=== PATIENT | female | born 1975 | race American Indian/Alaskan Native ===

== ENCOUNTER 2016-11-26 11:12 | Emergency (ER) | payer OTHER ==
[2016-11-26] MEDS ORDERED: TORADOL IM ONE (15:09)
[2016-11-26] MEDS ORDERED: CATAPRES PO ONE ×2 (15:32→17:18)
--- NOTE | 2016-11-26 16:11 | Emergency Department Report ---
HPI - General Chief Complaint: Earache Time Seen by Provider: 11/26/16 15:03 - HPI HPI: 41-year-old female presents today with pain in her right ear radiating to her right jaw. Patient states that she has a scar on her neck from her right thyroidectomy 6 years ago in the pain is causing discomfort in that scar. Patient's states that she's been symptomatic for the past 3 days. Positive for painful swallowing and runny nose. He tried Motrin and Tylenol with some initial relief but no relief at this time. Denies fever, chills, cough, nausea , vomiting, chest pain, shortness of breath, abdominal pain. Positive for history of TMJ dysfunction. Patient denies history of hypertension. Patient denies chest pain, palpitations , headache, visual changes, confusion, dizziness. ED Past Medical Hx - Medications Home Medications: Home Medications Medication Instructions Recorded Confirmed Last Taken Type Cyclobenzaprine [Flexeril] 10 mg PO TID PRN #20 tablet 11/26/16 Unknown Rx Ketorolac [Toradol] 10 mg PO Q6H PRN #20 tablet 11/26/16 Unknown Rx amLODIPine [Norvasc] 5 mg PO DAILY #30 tab 11/26/16 Unknown Rx ED Review of Systems ROS: Stated complaint: PAIN IN RIGHT EAR AND NECK Other details as noted in HPI Constitutional: denies: chills, fever, malaise Eyes: denies: eye pain ENT: ear pain, throat pain, congestion Respiratory: denies: cough, shortness of breath, wheezing Cardiovascular: denies: chest pain, palpitations Endocrine: no symptoms reported Gastrointestinal: denies: abdominal pain, nausea, vomiting Neurological: denies: headache, weakness Physical Exam - Physical Exam Vital Signs: Vital Signs 11/26/16 11/26/16 11/26/16 12:25 15:32 15:57 Temperature 98.6 F 98.1 F Pulse Rate 85 78 78 Respiratory 16 20 22 Rate Blood Pressure 184/113 214/134 Blood Pressure 214/134 [Left] O2 Sat by Pulse 100 97 Oximetry Physical Exam: GENERAL: The patient is well-developed and well-nourished. Patient is in NAD. HEAD: Normocephalic. Atraumatic. EYES: PERRL. EARS: External auditory canals and tympanic membranes clear; hearing grossly intact. No tenderness to palpation over the mastoid region. NOSE: Normal nasal mucosa with no nasal discharge. THROAT: Positive for erythema. No tonsillomegaly or tonsillar exudates noted. FACE: Tenderness to palpation over the right TM joint. NECK: Positive for right-sided anterior cervical lymphadenopathy. CHEST/LUNGS: Clear to auscultation throughout. HEART/CARDIOVASCULAR: Regular rate and rhythm. ABDOMEN: Abdomen is soft, nontender. Bowel sounds normoactive. No guarding or rebound tenderness. EXTREMITIES: Peripheral pulses intact. Capillary refill less than 2 seconds. NEURO: Alert and oriented x 3. Normal gait. ED Course Vital Signs 11/26/16 11/26/16 11/26/16 12:25 15:32 15:57 Temperature 98.6 F 98.1 F Pulse Rate 85 78 78 Respiratory 16 20 22 Rate Blood Pressure 184/113 214/134 Blood Pressure 214/134 [Left] O2 Sat by Pulse 100 97 Oximetry ED Medical Decision Making - Lab Data Vital Signs 11/26/16 11/26/16 11/26/16 12:25 15:32 15:57 Temperature 98.6 F 98.1 F Pulse Rate 85 78 78 Respiratory 16 20 22 Rate Blood Pressure 184/113 214/134 Blood Pressure 214/134 [Left] O2 Sat by Pulse 100 97 Oximetry 11/26/16 11/26/16 11/26/16 17:04 17:25 18:30 Temperature Pulse Rate 80 80 76 Respiratory 20 20 Rate Blood Pressure 173/132 Blood Pressure 173/132 156/104 [Left] O2 Sat by Pulse 98 98 Oximetry - Medical Decision Making 41-year-old female presents today with tenderness over the right TM joint. Patient was given Toradol and reported some symptomatic relief. Informed patient that her blood pressure was extremely elevated. Patient was given clonidine 0.2 mg and her blood pressure is trending towards the right direction. Patient is currently asymptomatic and denies chest pain, palpitations, headache, visual changes, dizziness, confusion. Explained to patient with uncontrolled hypertension can lead to heart attack, stroke and even . Patient expressed understanding and states that she will follow up with primary care provider. She will be discharged home and is encouraged to follow up with a primary care provider. She will be sent home on Toradol, Flexeril and Norvasc and is encouraged to return to the emergency room for any worsening symptoms. Critical care attestation.: If time is entered above; I have spent that time in minutes in the direct care of this critically ill patient, excluding procedure time. ED Disposition Clinical Impression: TMJ (temporomandibular joint disorder) HTN (hypertension) Qualifiers: Hypertension type: essential hypertension Qualified Code(s): I10 - Essential ( primary) hypertension Disposition: DISCHARGED TO HOME OR SELFCARE Is pt being admited?: No Does the pt Need Aspirin: No Condition: Stable Instructions: Hypertension (ED), Temporomandibular Disorder (ED) Additional Instructions: Follow-up with primary care provider. Return to the emergency department if symptoms worsen. Prescriptions: amLODIPine [Norvasc] 5 mg PO DAILY #30 tab Cyclobenzaprine [Flexeril] 10 mg PO TID PRN #20 tablet PRN Reason: Muscle Spasm Ketorolac [Toradol] 10 mg PO Q6H PRN #20 tablet PRN Reason: Pain Referrals: PRIMARY CARE, [Primary Care Provider] - 3-5 Days [facility] [Outside] - 3-5 Days Forms: Work/School Release Form(ED) Time of Disposition: 18:40
[2016-11-26 18:31] VITALS: BP 156/104
== END 2016-11-26 18:49 | disposition home or self-care (01) ==
LOC: ED 11:12
DX: M26.601 Right temporomandibular joint disorder, unspecified (principal); I10 Essential (primary) hypertension
CPT/HCPCS: 87116; 87430; 96372; 99283; J1885